=== PATIENT | male | born 1945 | race Caucasian/White ===

== ENCOUNTER → 2021-09-28 | Outpatient (CLI) | payer MEDICARE | LOC: HEART CORB 09:30 | DX: I10 Essential (primary) hypertension (principal); R94.31 Abnormal electrocardiogram [ECG] [EKG]; I25.2 Old myocardial infarction; E78.5 Hyperlipidemia, unspecified; I07.1 Rheumatic tricuspid insufficiency | CPT/HCPCS: 93306 ==